=== PATIENT | female | born 1950 | race African-American/Black ===

== ENCOUNTER 2021-10-09 16:12 | Emergency (ER) | payer MEDICARE, OTHER ==
[~2021-10-09] VITALS: Ht 170.2 cm; Wt 118.4 kg
--- NOTE | 2021-10-09 16:45 | NUR ---
BIB DAUGHTER C/O DIFFICULTY BREATHING AND WORSENING BLE EDEMA X 2 DAYS. PT AAOX4, DENIES CP, DIZZINESS, N/V AT THIS TIME. PLACED ON GEOGRAPHICAL HISTORIAN, SR. AWAITING EVAL BY ZOE. OMKAR CONT TO MONITOR.
--- NOTE | 2021-10-09 16:50 | NUR ---
DR. GOMES AT FOR EVAL.
[2021-10-09] MEDS ORDERED: WARF2.5T85 PO (17:34)
[2021-10-09] MEDS ORDERED: ISOS20TA8 PO (17:34)
[2021-10-09] MEDS ORDERED: BUME1TAB8 PO (17:34)
[2021-10-09] MEDS ORDERED: PRAV40TA3 PO (17:34)
[2021-10-09] MEDS ORDERED: METO25TA20 PO (17:34)
[2021-10-09] MEDS ORDERED: POTA10TA PO (17:34)
[2021-10-09] MEDS ORDERED: GABA800T11 PO (17:34)
[2021-10-09] MEDS ORDERED: ALEN70TA80 PO (17:54)
[2021-10-09] MEDS ORDERED: BUMETANIDE INJ 0.25 MG/ML VIAL IV ONE (18:30)
[2021-10-09] MEDS ORDERED: BUMETANIDE INJ 0.25 MG/ML VIAL ONE (18:46)
[2021-10-09 18:55] LABS: BASOPHILS % (AUTO) 0.1 % (0.0-2.0); HEMATOCRIT 38 % (33-45); HEMOGLOBIN 12.5 g/dL (11.5-14.8); LYMPHOCYTES # (AUTO) 0.3 K/uL (0.8-4.8); LYMPHOCYTES % (AUTO) 7.3 % (20.0-44.0); MEAN CORPUSCULAR HGB CONC 33 g/dl (31.0-36.0); MEAN CORPUSCULAR VOLUME 81 fL (82-100); MONOCYTES # (AUTO) 0.4 K/uL (0.1-1.30); MONOCYTES % (AUTO) 8.9 % (2.0-12.0); NEUTROPHILS # (AUTO) 3.8 K/uL (1.8-8.9); NEUTROPHILS % (AUTO) 83.7 % (43.0-81.0); RED BLOOD CELL COUNT(AUTO) 4.75 MIL/uL (4.0-5.2); WHITE BLOOD COUNT (AUTO) 4.5 K/uL (4.3-11.0)
[2021-10-09 19:22] LABS: PLATELET COUNT (AUTO) 149 K/uL (150-450)
--- NOTE | 2021-10-09 22:35 | NUR ---
SPOKE WITH CAROLINE CHÁVEZ FOR CLINICAL INFORMATION.
--- NOTE | 2021-10-09 23:07 | NUR ---
SINDHU MIDLINE INSERTED BY FARZAD PICC NURSE
--- NOTE | 2021-10-09 23:07 | NUR ---
SINDHU WEBER OK TO USE PER DELVIN PICC NURSE.
--- NOTE | 2021-10-10 00:10 | NUR ---
blood drawn and sent to lab
--- NOTE | 2021-10-10 00:37 | NUR ---
KALLI ALVES GAMBLING FLOOR SUPERVISOR - [phone] DIRECT , FAX
[2021-10-10 00:45] LABS: CALCIUM, SERUM 9.4 mg/dL (8.5-10.1); CREATININE 2.3 mg/dL (0.6-1.3); POTASSIUM 4.3 mmol/L (3.5-5.1)
[2021-10-10 00:50] LABS: BILIRUBIN,DIRECT 2.7 mg/dL (0.0-0.2); BILIRUBIN,TOTAL 4.3 mg/dL (0.2-1.0); TOTAL PROTEIN, SERUM 7.6 g/dL (6.4-8.2)
--- NOTE | 2021-10-10 00:53 | NUR ---
DEVORAH CRISTOBAL PRES ADMITTING - [phone] FAX [phone] FAX CLINICALS COVID RESULT IS BACK
--- NOTE | 2021-10-10 02:17 | NUR ---
FOLLOWED UP WITH LONG, STAKE SETTER. UPDATED CLINICALS SENT.
--- NOTE | 2021-10-10 03:03 | NUR ---
NEELA VARELA TALKING TO KALLI JHAVERI
--- NOTE | 2021-10-10 04:00 | NUR ---
RT ABG done, results given to HENNA Rivera, Dr West aware
--- NOTE | 2021-10-10 04:22 | NUR ---
PT ACCEPTED AT THE [facility] UNDER THE CARE OF DR. WADE. PT IS GOING TO ROOM 501. CALL [phone] FOR REPORT.
--- NOTE | 2021-10-10 04:23 | NUR ---
TRANSPORT ALL [facility] ETA [phone]
[2021-10-10 04:30] VITALS: BP 130/91
--- NOTE | 2021-10-10 04:47 | NUR ---
REPORT GIVEN TO CYNTHIA AGUILLON AT [facility].
--- NOTE | 2021-10-10 04:48 | NUR ---
BRANDI (DAUGHTER) CALLED AND AWARE PT IS BEING TRANSFERRED TO [facility]
--- NOTE | 2021-10-10 05:38 | NUR ---
TRANSPORT HERE TO SORT WORKER PATIENT.
[2021-10-10 05:43] LABS: ABG BASE EXCESS 8.9 mmol/L; ABG PCO2 48.8 mmHg (35.0-45.0); ABG PH 7.462 (7.350-7.450); ABG PO2 124.4 mmHg (75.0-100.0); COHb 1.5 % (0.5-1.5); MetHb 0.4 % (0.0-1.5); O2Hb 96.6 % (94.0-97.0); SITE, ABG Left Radial; VENT MODE, BG NASAL CANNULA
== END 2021-10-10 05:28 | disposition short-term general hospital (02) ==
LOC: ER 16:22
DX: R06.00 Dyspnea, unspecified (principal); R60.0 Localized edema; J44.9 Chronic obstructive pulmonary disease, unspecified; Z86.711 Personal history of pulmonary embolism; Z79.01 Long term (current) use of anticoagulants; Z79.899 Other long term (current) drug therapy; I11.0 Hypertensive heart disease with heart failure; I50.9 Heart failure, unspecified; Z95.5 Presence of coronary angioplasty implant and graft; E87.2 Acidosis; Z20.822 Contact with and (suspected) exposure to COVID-19; R94.31 Abnormal electrocardiogram [ECG] [EKG]
CPT/HCPCS: 36410; 36415; 36600; 71045; 80048; 80076; 83880; 84484; 85025; 85730; 87081; 87426; 93005; 96374; 99285; J3490; C9803

== ENCOUNTER 2021-10-29 22:56 | Inpatient (IN) | payer OTHER ==
[~2021-10-29] VITALS: Ht 167.6 cm; Wt 108.1 kg
[~2021-10-29 22:56] MED LIST: ALEN70TA80 PO; BUME1TAB8 PO; GABA800T11 PO; ISOS20TA8 PO; METO25TA20 PO; POTA10TA PO; PRAV40TA3 PO; WARF2.5T85 PO
--- NOTE | 2021-10-29 23:00 | NUR ---
PT BIBRA C/O R FACIAL DROOP AND SLURRED SPEECH. PT UNABLE TO FOLLOW COMMANDS, BUT CAN MOVE HER EXTREMITIES. PER DAUGHTER, PT LKW 1500 TODAY. UPON ASSESSMENT, PT EYES TRACKING. PT ATTACHED TO MONITOR AND POX. MD AT BEDSIDE. PT GIVEN BLANKET AND CALL LIGHT WITHIN REACH
--- NOTE | 2021-10-29 23:03 | NUR ---
BS 82
--- NOTE | 2021-10-29 23:03 | NUR ---
CODE STROKE CALLED
--- NOTE | 2021-10-29 23:14 | NUR ---
PT ASSESSED BY TELEMED . PERRI VARELA AT PT'S BEDSIDE
--- NOTE | 2021-10-29 23:20 | NUR ---
PT TAKEN TO CT VIA JANAE
[2021-10-29] MEDS ORDERED: IV NS 0.9% 1,000 ML BAG IV ONE (23:30)
[2021-10-29] MEDS ORDERED: CT SWABBABLE VALVE TRANS SET 1 EA INFUS.SET MC ONE (23:41)
[2021-10-29] MEDS ORDERED: IOHEXOL-350 100 ML VIAL IV ONE ×2 (23:41→23:57)
[2021-10-29] MEDS ORDERED: IV NS 0.9% 250 ML IV ONE (23:41)
--- NOTE | 2021-10-29 23:42 | NUR ---
Franki bartholomew in ED - 10/29/21 at 2342 by VENKATA IV TO LAC #20G S/L; PATENT AND INTACT.
--- NOTE | 2021-10-29 23:42 | NUR ---
IV TO RAC #20G S/L; PATENT AND INTACT.
[2021-10-29 23:43] LABS: EOSINOPHILS % (AUTO) 3.6 % (0.0-6.0); HEMATOCRIT 34 % (33-45); MONOCYTES # (AUTO) 0.6 K/uL (0.1-1.30); NEUTROPHILS # (AUTO) 1.9 K/uL (1.8-8.9); WHITE BLOOD COUNT (AUTO) 3.7 K/uL (4.3-11.0)
--- NOTE | 2021-10-29 23:43 | NUR ---
PT TAKEN TO CT VIA JANAE
[2021-10-29 23:46] LABS: BASOPHILS # (AUTO) 0.1 K/uL (0.0-0.2); BASOPHILS % (AUTO) 1.9 % (0.0-2.0); HEMOGLOBIN 10.8 g/dL (11.5-14.8); LYMPHOCYTES % (AUTO) 27.8 % (20.0-44.0); MEAN CORPUSCULAR HGB CONC 32 g/dl (31.0-36.0); MEAN CORPUSCULAR VOLUME 81 fL (82-100); MONOCYTES % (AUTO) 16.1 % (2.0-12.0); NEUTROPHILS % (AUTO) 50.6 % (43.0-81.0); PLATELET COUNT (AUTO) 221 K/uL (150-450); RED BLOOD CELL COUNT(AUTO) 4.15 MIL/uL (4.0-5.2)
--- NOTE | 2021-10-29 23:49 | NUR ---
PT WAS TAKEN TO RADIOLOGY
[2021-10-29 23:55] LABS: CALCIUM, SERUM 9.4 mg/dL (8.5-10.1); CARBON DIOXIDE 32 mmol/L (21-32); CHLORIDE 96 mmol/L (98-107); CREATININE 3.8 mg/dL (0.6-1.3); GLUCOSE 92 mg/dL (74-106); POTASSIUM 5.6 mmol/L (3.5-5.1); SODIUM SERUM 136 mmol/L (136-145); UREA NITROGEN, BLOOD 51 mg/dL (7-18)
[2021-10-30] LABS: ALANINE AMINOTRANSFERASE 25 U/L (12-78); ALKALINE PHOSPHATASE 157 U/L (46-116); ASPARTATE AMINOTRANSFERASE 37 U/L (15-37); BILIRUBIN,DIRECT 2.3 mg/dL (0.0-0.2); BILIRUBIN,TOTAL 3.6 mg/dL (0.2-1.0); TOTAL PROTEIN, SERUM 7.6 g/dL (6.4-8.2)
--- NOTE | 2021-10-30 00:30 | NUR ---
urine and covid swab sent to lab
--- NOTE | 2021-10-30 00:33 | NUR ---
called rt for abgs
[2021-10-30 00:44] LABS: BILIRUBIN,URINE SMALL (NEGATIVE); COLOR,URINE DARK YELLOW (YELLOW); LEUKOCYTE ESTERASE ,URINE NEGATIVE (NEGATIVE); NITRITE, URINE NEGATIVE (NEGATIVE); PH,URINE 6.5 (5.0-8.0); PROTEIN,URINE NEGATIVE (NEGATIVE); UGLUCOSE NEGATIVE (NEGATIVE)
[2021-10-30 00:49] LABS: ABG BASE EXCESS 3.4 mmol/L; ABG PH 7.471 (7.350-7.450); ABG PO2 104.3 mmHg (75.0-100.0); MetHb 0.5 % (0.0-1.5); O2Hb 96.3 % (94.0-97.0); SITE, ABG Right Radial; VENT MODE, BG Nasal Cannula
[2021-10-30 00:51] LABS: BACTERIA,URINE None seen /HPF (None Seen); MUCUS,URINE Few /LPF (None Seen); SQUAMOUS EPITHELIAL CELL,UR Few /HPF (None Seen); WBC,URINE 0-2 /HPF (0-3)
[2021-10-30 00:58] LABS: EOSINOPHILS % (MANUAL) 3 % (0-4); LYMPHOCYTES % (MANUAL) 31 % (16-48); MONOCYTES % (MANUAL) 12 % (0-11.0); NEUTROPHILS % (MANUAL) 54 (42-76)
--- NOTE | 2021-10-30 01:15 | NUR ---
pt sleeping, attached to monitor and pox
--- NOTE | 2021-10-30 02:30 | NUR ---
pt sleeping, breathing evenly and unlabored
--- NOTE | 2021-10-30 03:45 | NUR ---
pt sleeping, attached to monitor and pox.
--- NOTE | 2021-10-30 04:15 | NUR ---
Patient is resting comfortably in bed with eyes closed. Easily aroused. VSS
--- NOTE | 2021-10-30 05:15 | NUR ---
Patient is resting comfortably in bed with eyes closed. Easily aroused. VSS
--- NOTE | 2021-10-30 07:30 | NUR ---
GAVE REPORT TO HENNA LYONS FOR MARCELLUS
--- NOTE | 2021-10-30 07:52 | NUR ---
admitting called to f/u if patient will be tx
--- NOTE | 2021-10-30 10:35 | NUR ---
AWAITING BED AT [facility]
--- NOTE | 2021-10-30 13:55 | NUR ---
DR. BRAVO SPEAKING WITH NEELA VARELA.
--- NOTE | 2021-10-30 15:12 | NUR ---
Franki bartholomew in ED - 10/30/21 at 1705 by YA PATIENT WHEELED OUT VIA JANAE BAÑUELOS [employer] FOR MRI
--- NOTE | 2021-10-30 15:36 | NUR ---
PATIENT WHEELED OUT VIA GURNEY BY [employer] FOR MRI
--- NOTE | 2021-10-30 17:21 | NUR ---
PATIENT BACK TO ROOM FROM MRI
--- NOTE | 2021-10-30 18:52 | NUR ---
PATIENT IN BED ASLEEP, AROUSABLE BY VOICE, HOOKED TO MONITOR. VSS. KEPT WARM, SAFE AND COMFORTABLE.
--- NOTE | 2021-10-30 19:13 | NUR ---
ENDORSEMENT GIVEN TO GARCIA AGUILLON FOR MARCELLUS
[2021-10-30] MEDS ORDERED: HYDROCODONE/APAP 5/325MG TABLET PO PRN (19:30)
[2021-10-30] MEDS ORDERED: CEFTRIAXONE 1 G in IV D5W 50 ML IV SCH (19:30)
[2021-10-30] MEDS ORDERED: SODIUM POLYSTYRENE SULFONATE 15 G/60 ML BOTTLE PO ONE (19:30)
[2021-10-30] MEDS ORDERED: ACETAMINOPHEN 325 MG TABLET PO PRN (19:30)
--- NOTE | 2021-10-30 19:43 | NUR ---
SENIOR COURTROOM CLERK AT BEDSIDE
--- NOTE | 2021-10-30 20:17 | NUR ---
ATTEMPTED TO GIVE REPORT, RN WITH PT. WILL CALL ME BACK
--- NOTE | 2021-10-30 20:38 | NUR ---
REPORT GIVEN TO HENNA MANE FOR MARCELLUS
[2021-10-30 22:06] VITALS: BP 109/59
[2021-10-30] MEDS: IV D5/ 0.9% NACL 1,000 ML IV PRN (22:18)
[2021-10-30 22:24] VITALS: BP 109/59
[2021-10-30] MEDS: ASPIRIN EC 81 MG TABLET.DR PO SCH (22:42)
[2021-10-30] MEDS ORDERED: SODIUM POLYSTYRENE SULFONATE 15 G/60 ML BOTTLE ONE (23:02)
[2021-10-30] MEDS ORDERED: CEFTRIAXONE 1 G VIAL ONE (23:04)
[2021-10-30] MEDS: CEFTRIAXONE 1 G in IV D5W 50 ML IV SCH (23:13)
--- NOTE | 2021-10-30 23:26 | NUR ---
ADMISSION 71y/o female admitted for AMS. Patient A/Ox 1 to self only, unable to provided meaningful history. Skin intact, peripheral line Right AC in place. Fall precaution maintained. Medication due while patient in ER, administered not on time in the unit. Fall precaution maintained.
[2021-10-31 00:26] VITALS: BP 98/56
[2021-10-31 04:16] VITALS: BP 98/62
--- NOTE | 2021-10-31 06:00 | NUR ---
END OF SHIFT REPORT Patient is A/O x1 to self only, confused. Afib controlled in the Tele monitor HR 92. !00% on 2L via NC. IVF infusing, on IV Abx. Afebrile. Wright cath in place, adequate urine output. Fall precaution maintained. Will endorse to oncoming RN.
--- NOTE | 2021-10-31 07:50 | NUR ---
HAT RENOVATOR OPENING NOTE Patient in bed, asleep. A/O x 1. On O2 at 2 LPM via NC, breathing evenly and unlabored. No SOB or s/s of distress noted. IV access on RAC #20G, intact and patent infusing D5 NS at 100 ml/hr. Wright catheter in place, intact draining to a yellow colored urine. On tele monitoring showing controlled AFib, HR 84. Safety precautions in place: bed in low,locked position; siderails up x 2; call light within reach. Will continue to monitor.
[2021-10-31 08:00] VITALS: BP 109/68
[2021-10-31] MEDS: METOPROLOL TARTRATE 25 MG TABLET PO SCH ×2 (09:30→17:00)
[2021-10-31] MEDS: ASPIRIN EC 81 MG TABLET.DR PO SCH (09:30)
[2021-10-31] MEDS: APIXABAN 5 MG TABLET PO SCH ×2 (09:32→17:00)
[2021-10-31] MEDS: PRAVASTATIN SODIUM 20 MG TABLET PO SCH (09:33)
[2021-10-31] MEDS: IV D5/ 0.9% NACL 1,000 ML IV PRN (09:56)
[2021-10-31 12:00] VITALS: BP 101/69
[2021-10-31 16:00] VITALS: BP 100/60
[2021-10-31] MEDS: ISOSORBIDE DINITRATE (20MG) 20 MG TABLET PO SCH (17:48)
--- NOTE | 2021-10-31 17:48 | NUR ---
RN NOTE PO meds held due to difficulty swallowing, aware and ordered a swallow eval.
[2021-10-31 19:29] LABS: THYROID STIMULATING HORMONE 3.897 uIU/mL (0.358-3.74)
--- NOTE | 2021-10-31 19:34 | NUR ---
INSURANCE SPECIAL AGENT OPENING NOTE Patient in bed, resting comfortably. A/O x 1. On O2 at 2 LPM via NC, breathing evenly and unlabored. No SOB or s/s of distress noted. IV access on SENDY PICC line, intact and patent infusing D5 NS at 100 ml/hr. Wright catheter in place, intact draining to a yellow colored urine with an output of 900 cc. On tele monitoring showing controlled AFib, HR on the 80's. Safety precautions maintained: bed in low,locked position; siderails up x 2; call light within reach. Will endorse to customer data technician nurse for MARCELLUS. Addendum: 10/31/21 at 1936 by AMAIRANI CUETO RN CORRECTION: INSURANCE SPECIAL AGENT CLOSING NOTE
--- NOTE | 2021-10-31 19:50 | NUR ---
MS RN OPENING NOTES RECEIVED PATIENT RESTING IN BED. A/O X1. PATIENT WITH REGULAR AND UNLABORED BREATHING ON 2LPM VIA NASAL CANULA, TOLERATED WELL. NO SIGNS AND SYMPTOMS OF DISTRESS NOTED. NO COMPLAIN OF PAIN OR DISCOMFORT NOTED AT THIS TIME. IV ACCESS SENDY MIDLINE ON D5 NS @ 100ML/HR. ACCESS PATENT AND INTACT. SAFETY PRECAUTIONS ENFORCED WITH BED LOCKED AND AT LOWEST POSITION. SIDERAILS UP. CALL LIGHT WITHIN REACH AT ALL TIMES WILL CONTINUE TO MONITOR PATIENT. Addendum: 10/31/21 at 2343 by KASSIE RAO RN A AUXILIARY OPENING NOTES
[2021-10-31 19:53] LABS: BASOPHILS % (AUTO) 1.3 % (0.0-2.0); EOSINOPHILS % (AUTO) 3.7 % (0.0-6.0); HEMATOCRIT 32 % (33-45); HEMOGLOBIN 10.2 g/dL (11.5-14.8); LYMPHOCYTES # (AUTO) 0.8 K/uL (0.8-4.8); LYMPHOCYTES % (AUTO) 22.9 % (20.0-44.0); MEAN CORPUSCULAR HGB CONC 33 g/dl (31.0-36.0); MEAN CORPUSCULAR VOLUME 83 fL (82-100); MONOCYTES # (AUTO) 0.6 K/uL (0.1-1.30); MONOCYTES % (AUTO) 16.5 % (2.0-12.0); NEUTROPHILS # (AUTO) 1.9 K/uL (1.8-8.9); NEUTROPHILS % (AUTO) 55.6 % (43.0-81.0); PLATELET COUNT (AUTO) 193 K/uL (150-450); RED BLOOD CELL COUNT(AUTO) 3.81 MIL/uL (4.0-5.2); WHITE BLOOD COUNT (AUTO) 3.4 K/uL (4.3-11.0)
[2021-10-31 20:00] VITALS: BP 103/68
[2021-10-31 20:25] LABS: EOSINOPHILS % (MANUAL) 3 % (0-4); LYMPHOCYTES % (MANUAL) 27 % (16-48); MONOCYTES % (MANUAL) 9 % (0-11.0); NEUTROPHILS % (MANUAL) 61 (42-76)
[2021-10-31] MEDS: CEFTRIAXONE 1 G in IV D5W 50 ML IV SCH (20:43)
[2021-10-31 21:09] LABS: ALBUMIN 2.9 g/dL (3.4-5.0); BILIRUBIN,TOTAL 3.3 mg/dL (0.2-1.0); CALCIUM, SERUM 8.9 mg/dL (8.5-10.1); CREATININE 3.4 mg/dL (0.6-1.3); MAGNESIUM 3.1 mg/dL (1.8-2.4); PHOSPHORUS 5.6 mg/dL (2.5-4.9); POTASSIUM 5.4 mmol/L (3.5-5.1); TOTAL PROTEIN, SERUM 7.8 g/dL (6.4-8.2)
[2021-10-31] MEDS ORDERED: SODIUM POLYSTYRENE SULFONATE 15 G/60 ML BOTTLE RC ONE (23:00)
[2021-10-31] MEDS ORDERED: IV D5/0.45 NACL 1,000 ML IV PRN (23:00)
[2021-10-31] MEDS ORDERED: SODIUM POLYSTYRENE SULFONATE 15 G/60 ML BOTTLE ONE (23:26)
[2021-11-01 00:02] VITALS: BP 104/76
[2021-11-01 05:00] VITALS: BP 98/76
--- NOTE | 2021-11-01 07:05 | NUR ---
MS RN CLOSING NOTES PATIENT STILL RESTING IN BED. A/O X1. PATIENT WITH REGULAR AND UNLABORED BREATHING ON 2LPM VIA NASAL CANULA, TOLERATED WELL. NO SIGNS AND SYMPTOMS OF DISTRESS NOTED. NO COMPLAIN OF PAIN OR DISCOMFORT NOTED AT THIS TIME. IV ACCESS SENDY MIDLINE ON D5 NS @ 100ML/HR. ACCESS PATENT AND INTACT. SAFETY PRECAUTIONS ENFORCED WITH BED LOCKED AND AT LOWEST POSITION. SIDERAILS UP. CALL LIGHT WITHIN REACH AT ALL TIMES WILL ENDORSE CONTINUITY OF CARE TO DAY SHIFT NURSE.
--- NOTE | 2021-11-01 07:18 | NUR ---
MS RN OPENING NOTES RECEIVED PATIENT RESTING IN BED. A/O X1. PATIENT WITH REGULAR AND UNLABORED BREATHING ON 2LPM VIA NASAL CANULA, TOLERATED WELL. NO SIGNS AND SYMPTOMS OF DISTRESS NOTED. NO COMPLAIN OF PAIN OR DISCOMFORT NOTED AT THIS TIME. IV ACCESS SENDY PICC ON D5 NS @ 100ML/HR. ACCESS PATENT AND INTACT. SAFETY PRECAUTIONS ENFORCED WITH BED LOCKED AND AT LOWEST POSITION. SIDERAILS UP. CALL LIGHT WITHIN REACH AT ALL TIMES WILL CONTINUE TO MONITOR
--- NOTE | 2021-11-01 07:19 | NUR ---
RN NOTE PATIENT AWAITING SWALLOW EVAL UNABLE TO SWALLOW SAFELY PLACED ON NPO DIET UNTIL SWALLOW EVAL MD AWARE
[2021-11-01 08:00] VITALS: BP 113/89
[2021-11-01 08:01] LABS: BASOPHILS % (AUTO) 0.6 % (0.0-2.0); EOSINOPHILS % (AUTO) 3.6 % (0.0-6.0); HEMATOCRIT 33 % (33-45); HEMOGLOBIN 10.9 g/dL (11.5-14.8); LYMPHOCYTES # (AUTO) 0.9 K/uL (0.8-4.8); LYMPHOCYTES % (AUTO) 22.2 % (20.0-44.0); MEAN CORPUSCULAR HGB CONC 33 g/dl (31.0-36.0); MEAN CORPUSCULAR VOLUME 81 fL (82-100); MONOCYTES # (AUTO) 0.7 K/uL (0.1-1.30); MONOCYTES % (AUTO) 18.9 % (2.0-12.0); NEUTROPHILS # (AUTO) 2.1 K/uL (1.8-8.9); NEUTROPHILS % (AUTO) 54.7 % (43.0-81.0); PLATELET COUNT (AUTO) 189 K/uL (150-450); RED BLOOD CELL COUNT(AUTO) 4.03 MIL/uL (4.0-5.2); WHITE BLOOD COUNT (AUTO) 3.9 K/uL (4.3-11.0)
[2021-11-01] MEDS: ASPIRIN EC 81 MG TABLET.DR PO SCH (08:20)
[2021-11-01] MEDS: PRAVASTATIN SODIUM 20 MG TABLET PO SCH (08:21)
[2021-11-01] MEDS: METOPROLOL TARTRATE 25 MG TABLET PO SCH ×2 (08:21→16:01)
[2021-11-01] MEDS: APIXABAN 5 MG TABLET PO SCH ×2 (08:21→16:01)
[2021-11-01 08:26] LABS: ALBUMIN 2.6 g/dL (3.4-5.0); BILIRUBIN,TOTAL 2.8 mg/dL (0.2-1.0); CALCIUM, SERUM 8.5 mg/dL (8.5-10.1); CREATININE 3.1 mg/dL (0.6-1.3); MAGNESIUM 2.9 mg/dL (1.8-2.4); PHOSPHORUS 4.8 mg/dL (2.5-4.9); POTASSIUM 4.2 mmol/L (3.5-5.1); TOTAL PROTEIN, SERUM 7.2 g/dL (6.4-8.2)
[2021-11-01 12:00] VITALS: BP 118/71
[2021-11-01 13:29] LABS: EOSINOPHILS % (MANUAL) 1 % (0-4); LYMPHOCYTES % (MANUAL) 21 % (16-48); MONOCYTES % (MANUAL) 19 % (0-11.0); NEUTROPHILS % (MANUAL) 59 (42-76)
[2021-11-01 16:00] VITALS: BP 121/69
[2021-11-01] MEDS: ISOSORBIDE DINITRATE (20MG) 20 MG TABLET PO SCH (17:32)
--- NOTE | 2021-11-01 18:20 | NUR ---
MS RN CLOSING NOTES PATIENT RESTING IN BED. A/O X1. PATIENT WITH REGULAR AND UNLABORED BREATHING ON 2LPM VIA NASAL CANULA, TOLERATED WELL. NO SIGNS AND SYMPTOMS OF DISTRESS NOTED. NO COMPLAIN OF PAIN OR DISCOMFORT NOTED AT THIS TIME. IV ACCESS SENDY PICC ON D5 1/2 NS @ 100ML/HR. ACCESS PATENT AND INTACT. ALL MEDICATION WAS HELD DUE TO NPO STATUS, MD AWARE. SAFETY PRECAUTIONS ENFORCED WITH BED LOCKED AND AT LOWEST POSITION. SIDERAILS UP. CALL LIGHT WITHIN REACH AT ALL TIMES WILL ENDORSE TO ONCOMING SHIFT
[2021-11-01 20:00] VITALS: BP 121/66
[2021-11-02] VITALS: BP 113/70
[2021-11-02 04:00] VITALS: BP 102/61
--- NOTE | 2021-11-02 07:30 | NUR ---
PT RECEIVED RESTING COMFORTABLY IN BED. NO S/S OR C/O PAIN OR DISTRESS NOTED. SIDE RAILS UP X2, CALL LIGHT LEFT WITHIN REACH. WILL CONTINUE PLAN OF CARE
[2021-11-02 08:29] VITALS: BP 130/68
[2021-11-02] MEDS ORDERED: ATORVASTATIN 10 MG TABLET PO SCH (09:00)
[2021-11-02] MEDS: ASPIRIN EC 81 MG TABLET.DR PO SCH (09:23)
[2021-11-02] MEDS: METOPROLOL TARTRATE 25 MG TABLET PO SCH (09:24)
[2021-11-02] MEDS: APIXABAN 5 MG TABLET PO SCH ×2 (09:38→17:52)
[2021-11-02 12:08] VITALS: BP 118/72
--- NOTE | 2021-11-02 14:48 | NUR ---
SS Consult: SS consult for discharge planning. Pt. Is a 71-year-old female. Pt. did not demonstrate adequate insight to the reason for hospitalization. Pt. does not recall how she got to hospital. Pt. was oriented x2, alert, and cooperative. During interview, pt. was capable of following directions, made appropriate eye-contact, and appeared well-groomed. Pt.s speech was at a normal rate. Pt.s mood was elevated. SW explored pt.s Hx of mental health and substance abuse. Pt. reported no Hx of mental health, substance abuse, suicidal or homicidal. Pt. denies auditory hallucinations, visual hallucinations, paranoia, or delusions. SW explored pt.s living situation. Per pt., she lives with her daughter Deja [[id number] [place] [address], tele: [phone]] and her granddaughter. Per pt., she reports having adequate support from daughter. Pt. expressed that she wants to return back to home once discharged. Per EMR, pt. will be going to SNF for PT. Plan: SW provided available resources and pt. accepted. Once discharge, per pt., he will return to [address of place]. Resources Provided: ABUSE PREVENTION: ELDER ABUSE HOTLINE (13/06) ADULT PROTECTIVE SERVICES HOTLINE [facility] Region AREA ON AGING (HOTLINE) ADULT DAY HEALTH CARE CARE CENTERS: Private pay or [facility] funded adult day care [place] Adult Day Health Care [place] Adult [place] , [facility] Services , [facility] Adult Care Center , [facility] Adult Day Health Care , [facility] Adult Day Health Care , [facility] Adult Daycare Center , [facility] , [facility] Adult [place] , Joy ALZHEIMERS DISEASE/DEMENTIA: Alzheimers Association Helpline [facility] Chapter www.alz.org/[facility] Department of Aging www.lacity.org Family Caregiver [place] www.caregiver.org [place] Caregiver Resources Center/Family Support www.[facility].org CANCER RESOURCES: [place] Cancer Society www.cancer.org Cancer Support Community www.CancerSupportVvsb.org: CancerCare www.cancercare.org [facility] Cancer Support [place] www.[facility].org CRITICAL ACCESS HOSPITAL HEALTH ASSOCIATIONS: AARP www.aarp.org ALS Association (ask for Beata) www.als.org Finnish Diabetes Association www.diabetes.org Finnish Heart Association www.heart.org Finnish Lung Association www.lungusa.org Finnish Parkinson Disease Association www.apdaparkinson.org Finnish Days [place] , www.redcross.org Arthritis Foundation www.arthritis.org Crohns & Colitis Foundation of Finnish www.ccfa.org/chapters/nando National Multiple Sclerosis Society www.nationalmssociety.org Myasthenia Gravis Foundation www.myasthenia-ca.org National Stroke Association www.stroke.org CONSERVATORSHIP & GUARDIANSHIP: AARP Jenny Hart Legal Services Center for Health Care Rights [place] Information and Referral Process Consultant [facility]: [facility] Bar Referral Service [facility] Neighborhood Legal Services Office of the Public Guardian [place] EYESIGHT DISORDER RESOURCES: Finnish Macular Degeneration Foundation [facility] www.[facility].org GRIEF AND BEREAVEMENT RESOURCES: The [place] Place , [facility] THE HOPE Connection , [facility] Bereavement Center , [place] HEARING DISORDER RESOURCES: [place] Telephone Access Program Deaf and Disabled Telecommunications Program www.ddtp.[facility].ca.gov HearRx Hearing Centers ([place]) Better Hearing Systems , [place] GLAD ([facility] Agency on Deafness) V/ TTY; Food Or Baggage Handling [place] , [facility] Hearing [facility] -low income hearing aid assistance www.Jobulousst. joseph's women's hospitalfoundation.org [place] Hearing Care , Fabienne HELP AT HOME CAREGIVER SUPPORT: In Home Support Services (Must have Medi-Joseph to be eligible) *Ask for a list of agencies that provide services to assist with care in the home. Local Senior Centers also have listings of care providers. HOME SAFETY MODIFICATIONS AND EQUIPMENT: Senior centers have additional referrals. [place] Housing and Community Investment Dept. Handyworker Program (low income) or Visit http://hcidla.lacity.org/lee-wwwknz-so for more information National Seating and Mobility and/or ; Forever Active www.foreverManaged by Qmed.com Stay Home Safe www.Stayhomesafe.com LIFE ALERT RESPONSE SYSTEM: Yuuguu Services [phone] www. Antengo.[facility] Life Alert 223-394-1850 www.Assistera.[facility] Life Station 704-848-8835 www.Soluble Systems.[facility] Safe Return [phone] www.alz.or/safereturn Cell Phones for Seniors www.Enefgy MEALS AND FOOD PROGRAMS: [place] Meals on Wheels [phone] [place] Meals on Wheels [phone] [facility] [phone] [place] to the Homebound [phone] [place] to the Homebound [phone] [facility] to the Homebound [phone] [facility] to the Homebound [phone] [facility] Hospital[facility] [phone] [facility] [phone] ONE Generation [phone] [facility] [phone] [facility] [phone] Meals on Wheels [phone] For all ages: $6.85/ meal w side. Delivered M-F from 10 am-1pm. Application and payment is done over the phone. Frozen meals available for weekends. Emergency Food [facility] [phone] [facility] Power Equipment Mechanics Instructor [phone] [facility] [phone] [facility]- Brown bag lunches [phone] [facility] [phone] MEAL/GROCERY DELIVERY PROGRAMS: [facility] Gourmet Meals [phone] [facility] [phone]- [facility] Magic Kitchen [phone] Moms Meals [phone] (ask [place] for Discount Select grocery stores may provide delivery. MEDICAL INSURANCE SUPPORT SERVICES: Center for Health Care Rights [phone] Health Insurance Counseling/Advocacy Programs (HICAP)-Must have Medicare. Offers counseling for Medi-Joseph eligibility [phone] Department of Public Power Equipment Mechanics Instructor [phone] www.[facility].ca.gov Medicare 200-930-5527 www.socialsecurity.org Social Security [phone] SENIOR ACTIVITY PROGRAMS: *Contact a local senior center, adult school, recreation facility or community college for education, fitness, recreation, and social programs. Aquatic Therapy and Adapted Exercise programs through [facility] [phone] [facility] [phone] www.[facility]/encore H2U- Senior Friends [phone] [place] Senior Programs [phone] www.oasisnet.org Suddenly 65 www.fkwirhqt88.com SENIOR CENTERS: [facility] [phone] [facility] Center[facility] [phone] [facility] [phone] [facility] [phone] [facility] [phone] Api Healthcare [phone] [facility] [phone] [facility] [phone] One Generation [facility] [phone] [facility] [phone] [facility] [phone] [facility] [phone] [facility] [phone] TRANSPORTATION: Local [facility] Centers may have applications for transportation programs and additional resources. ACCESS Services [phone] Transportation for seniors and disabled persons 7 days a week requiring 254 hr. advance reservation. Must apply and register for program ajay eligible. CITY RIDE [phone] or [phone] Transportation for seniors and persons with ADA card/metro disabled card in the [facility]. M-F only. Must register for services. ONE GENERATION [phone] Serves 65 years + in conjunction with city ride program. Must be registered with both programs. A to B Transport [phone] Provides wheelchair/gurney van service. Adult Medical Transport [phone] Accepts [facility] with prior authorization. Care Van [phone] Provides wheelchair Transport. [facility] Wide Transportation [phone] Provides gurney service [facility] [phone] Gurney Transport. [facility] Town Transportation [phone] wheelchair & gurney transport D Transportation [phone] wheelchair & gurney transport [place] Non-Emergency Transport [phone] wheelchair & gurney transport [facility] Living [place] [phone] Short Term Transportation primarily for adults with disabilities on social security income. Nominal fee may apply and a reservation is required. [facility] [phone] or [phone] [facility] [phone] [place] [address] Referral Services -[phone] For additional programs & services VETERANS RESOURCES: Submissions for Aid and Attendance should be done directly to [facility] office locatd at : [address] [address] X110 National Caregiver Support Line [phone] [facility] Field Office [phone] [place] Department of Affairs [phone] Pension Information [phone]
[2021-11-02 15:56] VITALS: BP 125/68
--- NOTE | 2021-11-02 17:00 | NUR ---
ELIGIO OSPINA DC'Sariah PT TOLERATED WELL. WILL MONITOR FOR RETENTION.
[2021-11-02 17:51] VITALS: BP 125/68
[2021-11-02] MEDS: ISOSORBIDE DINITRATE (20MG) 20 MG TABLET PO SCH (17:51)
--- NOTE | 2021-11-02 19:40 | NUR ---
CHANGE OF SHIFT REPORT PATIENT RESTING COMFORTABLY IN BED. NO S/S OR C/O PAIN OR DISTRESS NOTED. SIDE RAILS UP X2, CALL LIGHT LEFT WITHIN REACH. PT KEPT CLEAN, DRY, AND COMFORTABLE. NO SIGNIFICANT CHANGES SINCE PREVIOUS SHIFT. REPORT GIVEN TO LAURA AGUILLON.
--- NOTE | 2021-11-02 19:45 | NUR ---
RN D/C notes Pt is laying in bed comfortably awake. Pt is alert and orientedX4. Respiration is normal in room air. No SOB. No S/S of distress noted. [facility] (Andres Bassett EMT and Aydee Raymundo, EMT) arrived to picked up and transport Pt to [facility]([phone]). VS is stable. Afebrile. D/c paper work is given to Pt and signed by PT. Give Pt's D/C paper to ambulance including Pt's belongings. Pt's armband is removed. Picc line is removed and applied gauze pressure to the site. Pt verbalize understanding. BP 103/56. Pulse 82. O2 sat 98% in room air. Temp 97.8 and respiration is 18.
[2021-11-03 12:11] LABS: *SPE A/G RATIO 0.7 (0.7-1.7); *SPE ALPHA-1-GLOBULIN 0.4 g/dL (0.0-0.4); *SPE ALPHA-2-GLOBULIN 0.6 g/dL (0.4-1.0); *SPE BETA GLOBULIN 1.1 g/dL (0.7-1.3); *SPE M-SPIKE Not Observed g/dL (Not Observed)
== END 2021-11-02 20:05 | DRG 69 ==
LOC: ER 22:58 → TRANSITION 10-30 19:12 → TELE 10-30 20:38
PROVIDERS: ADMIT Internal Medicine; ATTEND Internal Medicine
PROC: 02HV33Z Insertion of Infusion Device into Superior Vena Cava, Percutaneous Approach (ICD-10-PCS; principal; 2021-10-31)
PROC: B548ZZA Ultrasonography of Superior Vena Cava, Guidance (ICD-10-PCS; 2021-10-31)
DX: G45.9 Transient cerebral ischemic attack, unspecified (principal); N17.0 Acute kidney failure with tubular necrosis; G93.49 Other encephalopathy; I48.20 Chronic atrial fibrillation, unspecified; I13.0 Hypertensive heart and chronic kidney disease with heart failure and stage 1 through stage 4 chronic kidney disease, or unspecified chronic kidney disease; E87.5 Hyperkalemia; D50.9 Iron deficiency anemia, unspecified; E78.5 Hyperlipidemia, unspecified; I50.9 Heart failure, unspecified; Z79.01 Long term (current) use of anticoagulants; Z86.73 Personal history of transient ischemic attack (TIA), and cerebral infarction without residual deficits; N18.9 Chronic kidney disease, unspecified; Z20.822 Contact with and (suspected) exposure to COVID-19; R29.722 NIHSS score 22
CPT/HCPCS: 36415; 36600; 70450-TC; 70496-TC; 70498-TC; 70551-TC; 71045-TC; 76770-TC; 80048-TC; 80053-TC; 80061-TC; 80076-TC; 81001; 82140-TC; 82550-TC; 82803-TC; 82962-TC; 83540-TC; 83735-TC; 83970; 84100-TC; 84155; 84165; 84439-TC; 84443-TC; 84484-TC; 85025-TC; 85730-TC; 87081-TC; 92526; 92611-TC; 93307-TC; 97112-TC; 97116-TC; 97530-TC; C9803; G0378; J0696; J3490; J7042; J7050; J7060; Q9967